=== PATIENT | female | born 1970 | race Caucasian/White ===

== ENCOUNTER 2021-01-18 20:22 | Emergency (ER) | payer BC ==
[~2021-01-18] VITALS: Ht 157.5 cm; Wt 72.7 kg
[2021-01-18 20:27] VITALS: Ht 157.5 cm; Wt 72.7 kg
[2021-01-18 21:03] LABS: BASOPHILS 0.2 % (0-2); EOSINOPHILS 2.2 % (0-7); HEMATOCRIT 51.8 % (36.0-48.0); IMMATURE GRANULOCYTES 0.2 % (0-5); LYMPHOCYTE ABS# 0.59 10x3/uL (1.18-3.74); LYMPHOCYTES 11.9 % (15-50); MCH 31.6 pg (26.0-34.0); MCHC 34.7 g/dL (31.0-37.0); MCV 90.9 fL (80.0-100.0); MEAN PLATELET VOLUME 11.4 fL (7.4-10.4); MONOCYTES 10.3 % (2-11); NEUTROPHIL ABS# 3.74 10x3/uL (1.56-6.13); NEUTROPHILS 75.2 % (40-80); PLATELET COUNT 215 10x3/uL (130-400); RDW 12.3 % (11.5-14.5)
[2021-01-18 21:15] LABS: CALC OSMOLALITY 286 mosm/kg (275-300); CALCIUM 10.1 mg/dL (8.5-10.1); CARBON DIOXIDE 23.4 mmol/L (21.0-32.0); CHLORIDE - SERUM 103 mmol/L (98-107); CREATININE - SERUM 0.8 mg/dL (0.6-1.3); GLUCOSE 127 mg/dL (74-106); SODIUM 141 mmol/L (136-145); UREA NITROGEN 24 mg/dL (7-18); eGFR NON AFRICAN AMERICAN 81 mL/min (90-120)
[2021-01-18 21:21] LABS: ALKALINE PHOSPHATASE 99 U/L (30-120); ALT (SGPT) 128 U/L (10-68); AMYLASE - SERUM 37 U/L (25-115); BILIRUBIN - TOTAL 0.74 mg/dL (0.2-1.3); LIPASE 91 U/L (73-393); PROTEIN - SERUM 7.8 g/dL (6.4-8.2)
[2021-01-18] MEDS ORDERED: ZOFRAN ODT4 MG/UDTAB PO (21:59)
[2021-01-18 22:23] LABS: AMORPHOUS SEDIMENT <1+ LPF (NONE SEEN); BACTERIA MANY HPF (NONE SEEN); BILIRUBIN 1+ (NEGATIVE); KETONE NEGATIVE (NEGATIVE); NITRITE NEGATIVE (NEGATIVE); UROBILINOGEN NORMAL mg/dL (< 2)
[2021-01-18] MEDS ORDERED: MACROBID100 MG PO (22:29)
[2021-01-19 00:07] VITALS: BP 141/80
== END 2021-01-19 00:07 | disposition home or self-care (01) ==
LOC: D.ER 20:22
PROVIDERS: Emergency Medicine
DX: K52.89 Other specified noninfective gastroenteritis and colitis (principal); E86.0 Dehydration; N30.90 Cystitis, unspecified without hematuria; R10.9 Unspecified abdominal pain; R11.2 Nausea with vomiting, unspecified; R19.7 Diarrhea, unspecified